=== PATIENT | female | born 1970 | race African-American/Black ===

== ENCOUNTER 2019-01-09 07:59 | Emergency (ER) | payer BC ==
[~2019-01-09] VITALS: Ht 160 cm; Wt 129.3 kg
[2019-01-09 09:25] LABS: ABSOLUTE NEUTROPHILS 1.5 thou/uL (1.4-8.2); BASOPHILS 0.8 % (0.0-2.0); EOSINOPHILS 1.6 % (0.0-3.0); HEMATOCRIT 39.5 % (37.0-47.0); HEMOGLOBIN 12.9 gm/dL (12.0-15.0); LYMPHOCYTES 54.7 % (24.0-44.0); MCHC 32.7 g/dL (28.0-37.0); MCV 94.6 fL (80.0-100.0); MONOCYTES 7.5 % (1.0-8.0); PLATELET COUNT 212 thou/uL (150-400); POLYS 35.4 % (36.0-66.0); RBC 4.17 mil/uL (4.20-5.00); WBC 4.1 thou/uL (4.0-11.0)
[2019-01-09 09:29] LABS: ANION GAP 10 mmol/L (7-16); BUN 12 mg/dL (7-18); CALCIUM 9.2 mg/dL (8.5-10.1); CHLORIDE 110 mmol/L (98-107); CO2 25 mmol/L (21-32); GLUCOSE 92 mg/dL (74-106); POTASSIUM 3.6 mmol/L (3.5-5.1); SODIUM 145 mmol/L (136-145)
[2019-01-09 09:38] LABS: APTT 36.1 Seconds (24.5-32.8); INR 1.1; PROTIME 11.2 Seconds (9.3-11.4)
[2019-01-09 09:39] LABS: ALBUMIN 3.3 g/dL (3.4-5.0); MAGNESIUM 1.7 mg/dL (1.8-2.4); SGOT 21 U/L (15-37); SGPT 22 U/L (30-65); TOTAL BILIRUBIN 0.6 mg/dL (<0.1-1.0); TOTAL PROTEIN 6.6 g/dL (6.4-8.2); TROPONIN-I <0.06 ng/mL (<0.06)
[2019-01-09] MEDS ORDERED: GABAPENTIN 100100 MG PO (09:48)
[2019-01-09] MEDS ORDERED: NORCO 5-325 TA1 EAC1 PO (09:48)
[2019-01-09] MEDS ORDERED: XARELTO20 MG PO (09:48)
[2019-01-09] MEDS ORDERED: ASPIR 8181 MG PO (09:48)
[2019-01-09] MEDS ORDERED: OMEPRAZOLE 20 M20 M1 PO (09:48)
[2019-01-09] MEDS ORDERED: UNICOMPLEX M TA1 TA1 PO (09:48)
[2019-01-09] MEDS ORDERED: AMLODIPINE BESY10 MG PO (09:49)
[2019-01-09] MEDS ORDERED: LIORESAL 10 MG10 MG PO (09:49)
[2019-01-09] MEDS ORDERED: HYDROCHLOROTHIA25 M2 PO (09:49)
[2019-01-09] MEDS ORDERED: BENICAR40 MG PO (09:49)
[2019-01-09] MEDS ORDERED: VITAMIN D3400 UNIT PO (09:50)
[2019-01-09 10:25] LABS: URINE BILIRUBIN NEGATIVE (Negative); URINE BLOOD NEGATIVE (Negative); URINE CLARITY CLEAR; URINE COLOR YELLOW; URINE GLUCOSE-RANDOM* NEGATIVE (Negative); URINE KETONES NEGATIVE (Negative); URINE LEUKOCYTES-REFLEX NEGATIVE (Negative); URINE PROTEIN (DIPSTICK) NEGATIVE (Negative); URINE SPECIFIC GRAVITY 1.015 (1.005-1.035); URINE UROBILINOGEN 0.2 E.U./dl (0.2-1.0)
[2019-01-09 10:28] LABS: URINE NITRITE-REFLEX POSITIVE (Negative)
[2019-01-09 10:56] LABS: BACTERIA-REFLEX >30 Many /HPF (None Seen); CASTS None Seen /LPF (None Seen); CRYSTALS None Seen /LPF (None Seen); SQUAMOUS 4-10 Moderate /LPF (0-3); URINE RBC None Seen /HPF (0-2); URINE WBC-REFLEX 0-5 Rare /HPF (0-5)
[2019-01-09] MEDS ORDERED: BUTALB-APAP-CA1 EACH PO (11:00)
[2019-01-09 11:30] VITALS: BP 117/71
--- NOTE | 2019-01-10 12:33 | EKG ---
[facility] [place] [address] ELECTROCARDIOGRAM REPORT Name: JAYDEN GONZALEZ Room #: MINDI Chi#: [id number] ������������������ Admission: 01/09/19 ������������������ Attend Phys: Discharge: 01/09/19 ������������������ Date of : 74 Report #: [id number] ����������������������������������������������������������������� [id number] THIS REPORT FOR: //name// [facility] ED Test Date: 2019-01-09 Test Time: 09:41:25 Pat Name: JAYDEN GONZALEZ Department: Room: Gender: F [employer]: : 1970 Requested By: Orlin Oliver Order Number: [id number] MD: Sky Batista Measurements Intervals [place] Rate: 62 P: 25 WA: 219 QRS: -14 QRSD: 94 T: 8 QT: 439 QTc: 446 Interpretive Statements Sinus rhythm Prolonged WA interval Borderline T abnormalities, inferior leads No previous ECG available for comparison Electronically Signed On 01-10-2019 12:33:40 CDT by Sky Batista [email or web address] ��������������������������������������������� <ELECTRONICALLY SIGNED> ���������������������������������������� By: Sky Batista MD, [facility] ��������������������������������������������� 01/10/19 1233 0941 0941 Sky Batista MD, FACC /EPI
== END 2019-01-09 11:33 | disposition home or self-care (01) ==
LOC: ER 07:59
PROVIDERS: Emergency Medicine
DX: I67.1 Cerebral aneurysm, nonruptured (principal); G44.209 Tension-type headache, unspecified, not intractable; I10 Essential (primary) hypertension; Z86.711 Personal history of pulmonary embolism; Z88.0 Allergy status to penicillin

== ENCOUNTER 2021-03-28 15:38 | Emergency (ER) | payer BC ==
[~2021-03-28] VITALS: Ht 160 cm; Wt 100.2 kg
[~2021-03-28 15:38] MED LIST: AMLODIPINE BESY10 MG PO; ASPIR 8181 MG PO; BENICAR40 MG PO; BUTALB-APAP-CA1 EACH PO; GABAPENTIN 100100 MG PO; HYDROCHLOROTHIA25 M2 PO; LIORESAL 10 MG10 MG PO; NORCO 5-325 TA1 EAC1 PO; OMEPRAZOLE 20 M20 M1 PO; UNICOMPLEX M TA1 TA1 PO; VITAMIN D3400 UNIT PO; XARELTO20 MG PO
[2021-03-28 16:35] LABS: ABSOLUTE NEUTROPHILS 2.1 thou/uL (1.4-8.2); BASOPHILS 0.7 % (0.0-2.0); EOSINOPHILS 2.1 % (0.0-3.0); HEMATOCRIT 33.4 % (37.0-47.0); HEMOGLOBIN 10.9 gm/dL (12.0-15.0); LYMPHOCYTES 45.6 % (24.0-44.0); MCH 29.7 pg (26.0-34.0); MCHC 32.8 g/dL (28.0-37.0); MCV 90.5 fL (80.0-100.0); MONOCYTES 9.3 % (1.0-8.0); PLATELET COUNT 351 thou/uL (150-400); POLYS 42.3 % (36.0-66.0); RBC 3.69 mil/uL (4.20-5.00); RDW 14.4 % (10.5-14.5); WBC 4.9 thou/uL (4.0-11.0)
[2021-03-28 16:40] LABS: CALCIUM 9.2 mg/dL (8.5-10.1); CREATININE 1.1 mg/dL (0.6-1.0); POTASSIUM 4.4 mmol/L (3.5-5.1)
[2021-03-28 19:07] VITALS: BP 127/90
== END 2021-03-28 19:08 | disposition home or self-care (01) ==
LOC: ER 15:38
PROVIDERS: Nurse Practitioner
DX: L02.415 Cutaneous abscess of right lower limb (principal); I10 Essential (primary) hypertension; Z79.82 Long term (current) use of aspirin; Z79.1 Long term (current) use of non-steroidal anti-inflammatories (NSAID); Z79.899 Other long term (current) drug therapy; Z79.891 Long term (current) use of opiate analgesic; Z88.0 Allergy status to penicillin

== ENCOUNTER 2021-06-16 14:39 | Emergency (ER) | payer BC ==
[~2021-06-16] VITALS: Ht 160 cm; Wt 99.3 kg
[2021-06-16 14:42] VITALS: BP 140/90
[2021-06-16 14:59] LABS: ABSOLUTE NEUTROPHILS 1.5 thou/uL (1.4-8.2); BASOPHILS 0.5 % (0.0-2.0); EOSINOPHILS 2.9 % (0.0-3.0); HEMATOCRIT 33.8 % (37.0-47.0); HEMOGLOBIN 10.7 gm/dL (12.0-15.0); MCH 28.1 pg (26.0-34.0); MCHC 31.8 g/dL (28.0-37.0); MCV 88.2 fL (80.0-100.0); MONOCYTES 10.3 % (1.0-8.0); PLATELET COUNT 291 thou/uL (150-400); POLYS 39.3 % (36.0-66.0); RBC 3.83 mil/uL (4.20-5.00); RDW 15.4 % (10.5-14.5); WBC 3.9 thou/uL (4.0-11.0)
[2021-06-16 15:02] LABS: URINE BILIRUBIN NEGATIVE (Negative); URINE BLOOD NEGATIVE (Negative); URINE CLARITY CLEAR; URINE COLOR YELLOW; URINE GLUCOSE-RANDOM* NEGATIVE (Negative); URINE KETONES NEGATIVE (Negative); URINE LEUKOCYTES-REFLEX NEGATIVE (Negative); URINE NITRITE-REFLEX NEGATIVE (Negative); URINE PROTEIN (DIPSTICK) NEGATIVE (Negative); URINE SPECIFIC GRAVITY >= 1.030 (1.005-1.035); URINE UROBILINOGEN 0.2 E.U./dl (0.2-1.0)
[2021-06-16 15:06] LABS: CALCIUM 8.9 mg/dL (8.5-10.1); CREATININE 0.9 mg/dL (0.6-1.0); POTASSIUM 3.6 mmol/L (3.5-5.1)
[2021-06-16 15:13] LABS: ALBUMIN 3.1 g/dL (3.4-5.0); TOTAL BILIRUBIN 0.4 mg/dL (0.2-1.0); TOTAL PROTEIN 6.5 g/dL (6.4-8.2)
[2021-06-16] MEDS ORDERED: ZOFRAN ODT4 MG PO (16:39)
== END 2021-06-16 16:49 | disposition home or self-care (01) ==
LOC: ER 14:39
PROVIDERS: Physician Assistant
DX: R10.816 Epigastric abdominal tenderness (principal); R10.811 Right upper quadrant abdominal tenderness; R10.812 Left upper quadrant abdominal tenderness; R11.2 Nausea with vomiting, unspecified; I10 Essential (primary) hypertension; R19.7 Diarrhea, unspecified; Z88.0 Allergy status to penicillin